=== PATIENT | male | born 1975 | race Caucasian/White ===

== ENCOUNTER 2016-08-23 18:15 | Emergency (ER) | payer OTHER ==
[2016-08-23 18:34] VITALS: RESP 18
[2016-08-23] MEDS ORDERED: SODIUM CHLORIDE 0.9% 1,000 ML IV STA (18:57)
--- NOTE | 2016-08-23 19:12 | ED ---
Chest Pain HPI - General Chief Complaint: Chest Pain Stated Complaint: CHEST PAIN X 2 WEEKS, ANXIETY, BLURRED VISION Time Seen by Provider: 08/23/16 18:39 Source: patient, family, RN notes reviewed, old records reviewed Mode of arrival: wheelchair Limitations: no limitations - History of Present Illness Initial Comments: 40-year-old male presents emergency Department chief complaint of intermittent chest pain for the past 2 weeks. Patient reports that he also has had 2 episodes of blurry vision. Patient denies any shortness of breath or chest pain recently. Patient states that he also deals with anxiety. Patient reports that he has a significant history of anxiety and is concerned that his chest pain could be related to anxiety or more related to cardiac issues. Patient states that the chest pain will occur for approximately 30 minutes and then slowly subsided. He denies it being related to eating. Patient states that he has no significant past medical history. He denies any history of diabetes or hypertension. He does not see a primary care provider. Patient reports that he is a smoker. - Related Data Home Medications Medication Instructions Recorded Confirmed [facility] 1 tab PO DAILY 08/23/16 08/23/16 Previous Rx's Medication Instructions Recorded Azithromycin [Zithromax Z-pack] 250 mg PO DIRECTED #6 tab 08/23/16 LORazepam [Ativan] 0.5 mg PO BID #10 tab 08/23/16 Allergies Allergy/AdvReac Type Severity Reaction Status Date / Time Penicillins Allergy Anaphylaxis Verified 08/23/16 19:52 Review of Systems ROS Statement: Those systems with pertinent positive or pertinent negative responses have been documented in the HPI. ROS Other: All systems not noted in ROS Statement are negative. EKG Findings - EKG Comments: EKG Findings:: EKG shows normal sinus rhythm. Ventricular rate 75 bpm period. A 1:30 milliseconds. 88 ms QRS duration. QT QTC 388/433 ms. No evidence of ST elevation or T-wave inversion. No evidence of atrial or ventricular arrhythmias. Normal axis deviation. Past Medical History Past Medical History: No Reported History History of Any Multi-Drug Resistant Organisms: None Reported Past Surgical History: Orthopedic Surgery Additional Past Surgical History / Comment(s): lt thumb Past Psychological History: Anxiety Smoking Status: Current every day smoker Past Alcohol Use History: None Reported Past Drug Use History: None Reported General Exam - General Exam Comments Initial Comments: This is a 40-year-old male. No acute distress. Limitations: no limitations General appearance: alert, in no apparent distress Head exam: Present: atraumatic, normocephalic, normal inspection Eye exam: Present: normal appearance, PERRL, EOMI. Absent: scleral icterus, conjunctival injection, periorbital swelling ENT exam: Present: normal exam, mucous membranes moist Neck exam: Present: normal inspection. Absent: tenderness, meningismus, lymphadenopathy Respiratory exam: Present: normal lung sounds bilaterally. Absent: respiratory distress, wheezes, rales, rhonchi, stridor Cardiovascular Exam: Present: regular rate, normal rhythm, normal heart sounds. Absent: systolic murmur, diastolic murmur, rubs, gallop, clicks GI/Abdominal exam: Present: soft, normal bowel sounds. Absent: distended, tenderness, guarding, rebound, rigid Extremities exam: Present: normal inspection, full ROM, normal capillary refill. Absent: tenderness, pedal edema, joint swelling, calf tenderness Back exam: Present: normal inspection Neurological exam: Present: alert, oriented X3, CN II-XII intact Psychiatric exam: Present: normal affect, normal mood Skin exam: Present: warm, dry, intact, normal color. Absent: rash Course Vital Signs 08/23/16 08/23/16 18:32 20:01 Temperature 98.0 F 98.4 F Pulse Rate 91 72 Respiratory 18 18 Rate Blood Pressure 117/68 115/75 O2 Sat by Pulse 98 97 Oximetry Chest Pain MDM - [facility] 40-year-old male presents emergency Department chief complaint of intermittent chest pain for the past 2 weeks. Patient reports that he also has had 2 episodes of blurry vision. Patient denies any shortness of breath or chest pain recently. Patient states that he also deals with anxiety. Patient reports that he has a significant history of anxiety and is concerned that his chest pain could be related to anxiety or more related to cardiac issues. Patient states that the chest pain will occur for approximately 30 minutes and then slowly subsided. He denies it being related to eating. Patient states that he has no significant past medical history. He denies any history of diabetes or hypertension. He does not see a primary care provider. Patient reports that he is a smoker. His lab work is benign. Patient denies any coughing or wheezing. However chest x-ray shows Mild new reticular infiltrate in the left lower lobe. Patient's cardiac enzymes are benign. EKG was reviewed and normal. Unlikely to be any cardiac related issue of this been going on for 2 weeks. Discussed this case with Dr. Mariscal. We can start the patient on azithromycin for the lower lobe infiltrate. Patient agrees to treatment plan will comply. Return parameters were discussed. Disposition Clinical Impression: Anxiety, Community acquired pneumonia, Atypical chest pain Disposition: HOME SELF-CARE Condition: Good Instructions: Community Acquired Pneumonia (ED), Anxiety (ED) Additional Instructions: is advised to follow up with [facility] or other psychiatric counseling services. Complete her antibiotic prescription. Follow-up with a primary care provider. Return to emergency department if any alarming signs or symptoms occur. Prescriptions: Azithromycin [Zithromax Z-pack] 250 mg PO DIRECTED #6 tab LORazepam [Ativan] 0.5 mg PO BID #10 tab Referrals: None,Stated [Primary Care Provider] - 1-2 days Veda Moon MD [STAFF PHYSICIAN] - 1-2 days Time of Disposition: 20:31
[2016-08-23 19:25] LABS: Basophils % (A) 0 %; CH 31.1; CHCM 33.7; Eosinophils # (A) 0.3 k/uL (0-0.7); Eosinophils % (A) 4 %; HCT 47.2 % (39.0-53.0); HDW 2.29; HGB 15.7 gm/dL (13.0-17.5); Luc # (Auto) 0.22; Luc % (Auto) 3; Lymphocytes # (A) 2.5 k/uL (1.0-4.8); Lymphocytes % (A) 29 %; MCH 30.8 pg (25.0-35.0); MCHC 33.2 g/dL (31.0-37.0); MCV 92.5 fL (80.0-100.0); Monocytes # (A) 0.8 k/uL (0-1.0); Monocytes % (A) 9 %; Neutrophils # (A) 4.8 k/uL (1.3-7.7); Neutrophils % (A) 56 %; RDW 13.6 % (11.5-15.5); WBC 8.7 k/uL (3.8-10.6); WBC (Perox) 8.22
--- NOTE | 2016-08-23 19:31 | XR ---
EXAMINATION TYPE: XR chest 2V DATE OF EXAM: 08/23/2016 COMPARISON: 12/09/2015 HISTORY: Chest pain TECHNIQUE: Frontal and lateral views of the chest are obtained. FINDINGS: Heart and mediastinum are normal. There is slight coarsening of the lung markings in the l eft lower lobe. The other lung newman are clear. There are no hilar masses. There is no pleural effus ion. IMPRESSION: Mild new reticular infiltrate in the left lower lobe. Normal heart.
[2016-08-23 19:35] LABS: ALT 38 U/L (21-72); AST 19 U/L (17-59); Alkaline Phosphatase 56 U/L (38-126); Amylase 33 U/L (30-110); Anion Gap 9 mmol/L; Blood Urea Nitrogen 15 mg/dL (9-20); Calcium 9.1 mg/dL (8.4-10.2); Carbon Dioxide 23 mmol/L (22-30); Chloride 107 mmol/L (98-107); Glucose 89 mg/dL (74-99); Magnesium 2.1 mg/dL (1.6-2.3); Non-African American GFR(MDRD) >60 (>60 ml/min/1.73 sqM); Sodium 139 mmol/L (137-145); Total Bilirubin 1.6 mg/dL (0.2-1.3); Total Protein 6.6 g/dL (6.3-8.2)
[2016-08-23 19:46] LABS: INR 1.1 (<1.1); Partial Thromboplastin Time 27.2 sec (22.0-30.0)
[2016-08-23 19:47] LABS: Creatine Kinase 74 U/L (55-170)
[2016-08-23 20:00] LABS: Creatine Kinase MB 0.6 ng/mL (0.0-2.4); Troponin I <0.012 ng/mL (0.000-0.034)
[2016-08-23 20:02] VITALS: BP 115/75; PULSE 72; TEMP 98.4
[2016-08-23 20:04] LABS: Appearance,Urine Clear (Clear); Bilirubin,Urine Negative (Negative); Glucose,Urine (UA) Negative (Negative); Ketones,Urine 1+ (Negative); Leukocyte Esterase,Urine Negative (Negative); Mucus,Urine Few /hpf; Nitrite,Urine Negative (Negative); PH, Urine 5.5 (5.0-8.0); Particle Count 3416; Protein,Urine 1+ (Negative); RBC,Urine 2 /hpf (0-5); Specific Gravity,Urine 1.027 (1.001-1.035); UA Billing (MACRO vs. MICRO) MICRO; WBC,Urine 2 /hpf (0-5)
== END 2016-08-23 20:54 | disposition home or self-care (01) ==
LOC: EC 18:15
DX: F41.9 Anxiety disorder, unspecified (principal); J18.9 Pneumonia, unspecified organism; R07.89 Other chest pain; F17.200 Nicotine dependence, unspecified, uncomplicated; Z88.0 Allergy status to penicillin
CPT/HCPCS: 36415; 71020; 80053; 81001; 82150; 82550; 82553; 83690; 83735; 84484; 85025; 85379; 85610; 85730; 93005; 96360; 96361; 99285